=== PATIENT | male | born 1970 ===

== ENCOUNTER 2021-04-27 17:46 | Emergency (ER) | payer MEDICAID ==
[~2021-04-27] VITALS: Ht 175.3 cm; Wt 81.0 kg
[2021-04-27] MEDS ORDERED: TETRACAINE 0.5% OPHTH DROPS 4ML BOTHEYE ONE (19:30)
[2021-04-27] MEDS ORDERED: FLUORESCEIN SODIUM 1MG/STRIP BOTHEYE ONE (19:30)
[2021-04-27 22:39] VITALS: BP 145/86
== END 2021-04-27 22:41 | disposition home or self-care (01) ==
LOC: ER 17:46
DX: H11.31 Conjunctival hemorrhage, right eye (principal); T15.91XA Foreign body on external eye, part unspecified, right eye, initial encounter; I10 Essential (primary) hypertension; X58.XXXA Exposure to other specified factors, initial encounter; Y93.89 Activity, other specified; Y92.9 Unspecified place or not applicable
CPT/HCPCS: 70480; 99284